=== PATIENT | female | born 1950 | race Caucasian/White ===

== ENCOUNTER 2019-02-06 10:46 | Emergency (ER) | payer MEDICARE, OTHER ==
[2019-02-06 11:15] LABS: #Eosinphils 0.1 thou/uL (0.0-0.7); #Monocytes 0.7 thou/uL (0.11-0.59); #Neutrophils 3.4 thou/uL (1.40-6.50); %Basophils 0.1 % (0.0-1.0); %Eosinophils 1.9 % (0.0-10.0); %Lymphocytes 19.9 % (21.0-51.0); %Monocytes 13.6 % (0.0-10.0); %Neutrophils 64.5 % (42.0-75.0); Hemoglobin 12.9 g/dL (12.0-16.0); Mean Corpuscular HGB CONC 32.4 g/dL (32.0-36.0); Mean Corpuscular Hemoglobin 29.8 pg (27.0-31.0); Mean Corpuscular Volume 91.8 fL (78.0-98.0); Mean Platelet Volume 6.5 fL (7.4-10.4); Platelet Count 266 thou/uL (130-400); RBC Distribution Width 12.4 % (11.5-14.5); Red Blood Cell (RBC) Count 4.34 mill/uL (4.20-5.40); White Blood Cell (WBC) Count 5.2 thou/uL (4.8-10.8)
[2019-02-06 11:39] LABS: ALT (SGPT) 99 U/L (8-55); AST (SGOT) 70 U/L (5-34); Albumin 4.6 g/dL (3.4-4.8); Alkaline Phosphatase 124 U/L (40-150); Anion Gap 13 mmol/L (10-20); BUN (Urea Nitrogen) 10 mg/dL (9.8-20.1); Calc. Creatinine Clearance 0 mL/min (70-130); Carbon Dioxide 27 mmol/L (23-31); Chloride 104 mmol/L (98-107); Estimated GFR-MDRD 60; Globulin 3.3 g/dL (2.4-3.5); Glucose 131 mg/dL (80-115); Potassium 4.4 mmol/L (3.5-5.1); Protein, Total 7.9 g/dL (6.0-8.3); Sodium 140 mmol/L (136-145)
[2019-02-06] MEDS ORDERED: Ketorolac Tromethamine 30 MG/ML VIAL ONE (11:49)
[2019-02-06] MEDS ORDERED: diphenhydrAMINE 50 MG/ML VIAL ONE (11:49)
[2019-02-06] MEDS ORDERED: Acetaminophen 500 MG TAB ONE (11:49)
--- NOTE | 2019-02-06 12:08 | CT ---
Exam: CT brain PROVIDED CLINICAL HISTORY: Headache COMPARISON: None FINDINGS: The ventricular system is normal in size and morphology. No evidence for intracranial hemorrhage or mass effect. The extracranial soft tissues and osseous structures demonstrate an unremarkable CT appearance. Remote lacunar infarction versus dilated perivascular space left lentiform nucleus. IMPRESSION: No evidence for intracranial hemorrhage or mass effect.
[2019-02-06 12:11] LABS: Bilirubin Small (Negative); Blood, Urine Moderate (Negative); Clarity CLEAR (Clear); Glucose, Urine (Dipstick) Negative (Negative); Leukocyte Small (Negative); Nitrite Negative (Negative); Protein, Urine (Dipstick) 100 mg/dL (Neg-Trace); Specific Gravity, Urine 1.027 (1.002-1.036); pH, Urine 5.5 (5.0-9.0)
[2019-02-06 12:14] LABS: Bacteria/HPF None Seen HPF (None Seen); Hyaline Casts/LPF 7-10 HYALINE CAST LPF (0-3 Hyaline); Pathc Cast-AUWi Flag 1.49 (0-2.49); Squamous Epithelial 0-3 HPF (0-3)
== END 2019-02-06 15:34 | disposition home or self-care (01) ==
LOC: ERS 10:46
DX: R51 Headache (principal); M79.10 Myalgia, unspecified site; R31.9 Hematuria, unspecified; R94.5 Abnormal results of liver function studies; Z79.899 Other long term (current) drug therapy
CPT/HCPCS: 36415; 70450; 80053; 81003; 81015; 85025; 87804; 96361; 96374; 96375; J1200; J1885